=== PATIENT | male | born 1990 | race Caucasian/White ===

== ENCOUNTER 2018-10-05 19:43 | Emergency (ER) | payer SELFPAY ==
[2018-10-05 20:23] VITALS: BP 135/57
--- NOTE | 2018-10-05 20:41 | ED ---
Laceration/Wound HPI - HPI Summary HPI Summary: 28 yr old male using a utility knife on a paint can, cut through his jennifer and boxer short into his right anterior thigh. Injury occurred at noon today. He cleaned it with paper towel and water. He has encouraged to come have it looked at this evening by friends. Last tetanus shot was last year. - History of Current Complaint Stated Complaint: RIGHT THIGH LAC Time Seen by Provider: 10/05/18 20:25 Pain Intensity: 4 - Allergy/Home Medications Allergies/Adverse Reactions: Allergies Allergy/AdvReac Type Severity Reaction Status Date / Time amoxicillin Allergy Unknown Verified 10/05/18 20:16 Reaction Details Penicillins Allergy Unknown Verified 10/05/18 20:16 Reaction Details Home Medications: Home Medications Ibuprofen TAB* [Motrin TAB* 400 MG] 400 mg PO ONCE PRN 10/05/18 [History Confirmed 10/05/18] PMH/Surg Hx/FS Hx/Imm Hx Infectious Disease History: No Infectious Disease History: Denies: Traveled Outside the [place] in Last 30 Days - Family History Known Family History: Negative: Diabetes - Social History Alcohol Use: Occasionally Substance Use Type: Reports: None Smoking Status (MU): Light Every Day Tobacco Smoker Type: Cigarettes Amount Used/How Often: 6 cigarettes daily Review of Systems Constitutional: Negative Positive: Other - laceration to thigh All Other Systems Reviewed And Are Negative: Yes Physical Exam Triage Information Reviewed: Yes Vital Signs On Initial Exam: Initial Vitals Temp Pulse Resp BP Pulse Ox 98.7 F 95 20 135/57 99 10/05/18 20:17 10/05/18 20:17 10/05/18 20:17 10/05/18 20:17 10/05/18 20:17 Vital Signs Reviewed: Yes Appearance: Positive: Well-Appearing, No Pain Distress Skin: Positive: Other - 4 cm laceration right anterior thigh, clean and linear with no bleeding. It is about 6-7 mm deep. Head/Face: Positive: Normal Head/Face Inspection Eyes: Positive: EOMI ENT: Positive: Normal ENT inspection Respiratory/Lung Sounds: Positive: Clear to Auscultation, Breath Sounds Present Cardiovascular: Positive: RRR Abdomen Description: Negative: Distended Musculoskeletal: Positive: Strength/ROM Intact Neurological: Positive: Sensory/Motor Intact, Alert, Oriented to Person Place, Time, CN Intact II-III Psychiatric: Positive: Normal Procedures - Laceration/Wound Repair 1 Location: lower extremity - anterior right thigh. Description: Linear Anesthesia: Local - the patient declined local analgesia Length, Depth and Shape: 4 cm long, by 6 mm deep and linear. Betadine Prep?: Yes Irrigated w/ Saline (ccs): 400 Laceration/Wound Explored: clean, no foreign body removed Closure: [place] #__ - 3 Layer Closure?: No Sterile Dressing Applied?: Yes Diagnostics - Vital Signs Vital Signs Temp Pulse Resp BP Pulse Ox 10/05/18 20:17 98.7 F 95 20 135/57 99 - Laboratory Lab Statement: Any lab studies that have been ordered have been reviewed, and results considered in the medical decision making process. Laceration Repair Course/Dx - Course Course Of Treatment: 28 yr old with laceration right anterior thigh. Plan DC home WOund repaired by me. Catarina out in 10 days. - Clinical Impression Provider Diagnoses: Laceration of thigh, right Discharge - Sign-Out/Discharge Documenting (check all that apply): Patient Departure All imaging exams completed and their final reports reviewed: No Studies - Discharge Plan Condition: Good Disposition: HOME Patient Education Materials: Laceration (ED) Referrals: Sarai [facility]BLE [id number] [Primary Care Provider] - (In Ten days you need the catarina out. ) Additional Instructions: return to urgent care, or ER in ten days to have your catarina removed. - Billing Disposition and Condition Condition: GOOD Disposition: Home
== END 2018-10-05 21:02 | disposition home or self-care (01) ==
LOC: UCCORT 19:43
DX: S71.111A Laceration without foreign body, right thigh, initial encounter (principal); F17.210 Nicotine dependence, cigarettes, uncomplicated; Z88.0 Allergy status to penicillin; W26.0XXA Contact with knife, initial encounter; Y92.9 Unspecified place or not applicable
CPT/HCPCS: 12002; 99211; G0463

== ENCOUNTER 2019-02-26 19:42 | Emergency (ER) | payer SELFPAY ==
[2019-02-26 19:55] VITALS: BP 139/79
--- NOTE | 2019-02-26 20:11 | UC ---
General HPI - HPI Summary HPI Summary: Per tree trimmer: "SINCE MIDDAY YESTERDAY PT C/O NAUSEA AND VOMITTING. ALSO C/O INTERMITTENT "CHEST FEELS HEAVY" LAST FEW HOURS. DENIES FEVER/CHILLS. NAUSEOUS TODAY BUT NO VOMITTING. 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 he worked last week. heat index has been very high up to > 100. he was in the sun yesterday. started feeling "not right" w/ nausea, headache and fatigue yeterday. voimiting all last night, none today. no diarrhea. upper abd pain. chest pain started 2-3 hrs ago. dull over left and mid chest. no radiation. + diaphoresis. no FHx young sudden . no knwn CAD. -also has SOB. cant describe the abnormality w/ his breathing -chest pain improves with lying supine but worse with standing and sitting. lasts fom a few mins to 20 mins and can resolve but comes back. - History of Current Complaint Chief Complaint: UCGeneralIllness Stated Complaint: NAUSEA/PT STATE POSS HEAT EXHAUSTION Time Seen by Provider: 02/26/19 19:51 Pain Intensity: 3 - Allergy/Home Medications Allergies/Adverse Reactions: Allergies Allergy/AdvReac Type Severity Reaction Status Date / Time amoxicillin Allergy Unknown Verified 02/26/19 19:52 Reaction Details Penicillins Allergy Unknown Verified 02/26/19 19:52 Reaction Details Home Medications: Home Medications NK [No Home Medications Reported] 02/26/19 [History Confirmed 02/26/19] PMH/Surg Hx/FS Hx/Imm Hx Previously Healthy: Yes - Surgical History Surgical History: None - Family History Known Family History: Negative: Cardiac Disease, Diabetes - Social History Alcohol Use: Occasionally Substance Use Type: None Smoking Status (MU): Light Every Day Tobacco Smoker Type: Cigarettes Amount Used/How Often: 1 PPD Household Exposure Type: Cigarettes - Immunization History Most Recent Influenza Vaccination: 2016 Most Recent Tetanus Shot: unknown- at time of dena's 08/24/15 Review of Systems All Other Systems Reviewed And Are Negative: Yes Constitutional: Positive: Fatigue Skin: Negative: Rash Eyes: Positive: Negative ENT: Positive: Negative. Negative: Sore Throat Respiratory: Positive: Shortness Of Breath Cardiovascular: Positive: Chest Pain Gastrointestinal: Positive: Abdominal Pain, Vomiting, Nausea. Negative: Diarrhea Genitourinary: Positive: Negative Motor: Positive: Weakness Neurovascular: Positive: Negative Musculoskeletal: Positive: Negative Neurological: Positive: Headache, Weakness. Negative: Paresthesia, Numbness Psychological: Positive: Negative Is Patient Immunocompromised?: No Physical Exam Triage Information Reviewed: Yes Appearance: Ill-Appearing - mild, skin appears flushed. laying on exam table but sits up when I came in the room. Vital Signs: Initial Vital Signs Temp 99.2 F 02/26/19 19:52 Pulse 96 02/26/19 19:52 Resp 18 02/26/19 19:52 BP 139/79 02/26/19 19:52 Pulse Ox 100 02/26/19 19:52 Eye Exam: Normal Eyes: Positive: Conjunctiva Clear ENT Exam: Normal ENT: Positive: Pharynx normal, TMs normal, Uvula midline. Negative: Pharyngeal erythema, Nasal congestion, TM bulging, TM dull, TM red, Tonsillar swelling, Tonsillar exudate, Sinus tenderness Neck exam: Normal Neck: Positive: Supple, Nontender, No Lymphadenopathy Respiratory Exam: Normal Respiratory: Positive: Lungs clear, Normal breath sounds, No respiratory distress, No accessory muscle use. Negative: Crackles, Rhonchi, Stridor, Wheezing Cardiovascular Exam: Normal Cardiovascular: Positive: RRR, No Murmur, Other: - some mild reporduction f pain w/ palpation Abdomen Description: Positive: Soft, Other: - tender at mid epigatsrum. Negative: CVA Tenderness (R), CVA Tenderness (L), Distended, Guarding Bowel Sounds: Positive: Present Musculoskeletal Exam: Normal Neurological: Positive: Fatigued Psychological Exam: Normal Skin Exam: Normal Skin: Negative: Rashes Course/Dx - Course Course Of Treatment: Recommend further evaluation for heat exhaustion and work up for chest pain. recommend labs, fluids, zofran and work up. -EKG NSR, no acute changes. prominent S complex in V2, but no prev to compare. copy sent with pt to ER -declines ambulance understands risks. They are reliable and Jacquie reassures me that she will take jhim directly to ER - Differential Dx - Multi-Symptom Differential Diagnoses: Cardiac Ischemia, Metabolic Abnormality, Other - heat exhaustion - Diagnoses Provider Diagnosis: Chest pain Discharge - Sign-Out/Discharge Documenting (check all that apply): Patient Departure All imaging exams completed and their final reports reviewed: No Studies - Discharge Plan Condition: Fair Disposition: AGAINST MEDICAL ADVICE Referrals: No Primary Care Phys,NOPCP [Primary Care Provider] - Additional Instructions: Please go directly to the [place] emergency room for further evaluation of your chest pain. Do not stop anywhere else. - Billing Disposition and Condition Condition: FAIR Disposition: Against Medical Advice
== END 2019-02-26 20:19 | disposition left against medical advice (07) ==
LOC: UCCORT 19:42
DX: R07.9 Chest pain, unspecified (principal); F17.210 Nicotine dependence, cigarettes, uncomplicated
CPT/HCPCS: 93005; 99212; G0463

== ENCOUNTER 2019-03-24 18:02 | Emergency (ER) | payer SELFPAY ==
--- NOTE | 2019-03-24 18:26 | UC ---
Abdominal Pain Male HPI - HPI Summary HPI Summary: 28-year-old male who has had lower abdominal pain since Wednesday of this week. He 's had some intermittent nausea. 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 He states the abdominal pain shoots down into his groin. He is sexually active with one person in a monogamous relationship. He denies any penile discharge. He denies any urinary symptoms. - History of Current Complaint Chief Complaint: UCAbdominalPain Stated Complaint: LOWER ABDOMINAL PAIN Time Seen by Provider: 03/24/19 18:10 Hx Obtained From: Patient Onset/Duration: Gradual Onset Timing: Constant Severity Initially: Mild Severity Currently: Moderate Pain Intensity: 6 Location: Discrete At: RLQ, Discrete At: LLQ Radiates: Yes Radiates to: Inguinal Character: Aching, Sharp, Other - The pain that shoots down into the testicles he describes as a sharp pain. Aggravating Factor(s): Movement Alleviating Factor(s): Nothing Associated Signs And Symptoms: Positive: Decreased Appetite, Nausea - Risk Factors Testicular Torsion: Prior Torsion - Allergies/Home Medications Allergies/Adverse Reactions: Allergies Allergy/AdvReac Type Severity Reaction Status Date / Time amoxicillin Allergy Unknown Verified 03/24/19 18:17 Reaction Details Penicillins Allergy Unknown Verified 03/24/19 18:17 Reaction Details Home Medications: Home Medications Ibuprofen TAB* [Advil TAB*] 400 mg PO DAILY 03/24/19 [History Confirmed 03/24/19 ] PMH/Surg Hx/FS Hx/Imm Hx Previously Healthy: Yes - Surgical History Surgical History: None - Family History Known Family History: Negative: Cardiac Disease, Diabetes - Social History Alcohol Use: Occasionally Substance Use Type: None Smoking Status (MU): Heavy Every Day Tobacco Smoker Type: Cigarettes Amount Used/How Often: 1/2 ppd Household Exposure Type: Cigarettes - Immunization History Most Recent Influenza Vaccination: 2016 Most Recent Tetanus Shot: unknown- at time of daugher's 08/24/15 Review of Systems All Other Systems Reviewed And Are Negative: Yes Gastrointestinal: Positive: Abdominal Pain, Nausea Genitourinary: Positive: Other - Patient states the abdominal pain occasionally will shoot down into his groin.. Negative: Dysuria, Vaginal/Penile Burning, Vaginal/Penile Itching, Vaginal/Penile Discharge, Vaginal/Penile Pain, Vaginal/ Penile Tenderness Is Patient Immunocompromised?: No Physical Exam Triage Information Reviewed: Yes Appearance: Well-Appearing, No Pain Distress, Well-Nourished Vital Signs: Initial Vital Signs Temp 99.4 F 03/24/19 18:12 Pulse 107 03/24/19 18:12 Resp 16 03/24/19 18:12 BP 131/74 03/24/19 18:12 Pulse Ox 100 03/24/19 18:12 Vital Signs Reviewed: Yes Eyes: Positive: Conjunctiva Clear ENT: Positive: Hearing grossly normal, Pharynx normal, TMs normal, Uvula midline Neck: Positive: Supple, Nontender, No Lymphadenopathy Respiratory: Positive: Lungs clear, Normal breath sounds, No respiratory distress, No accessory muscle use Cardiovascular: Positive: No Murmur, Pulses Normal, Brisk Capillary Refill, Tachycardia Abdomen Description: Positive: No Organomegaly, Soft, CVA Tenderness (R), CVA Tenderness (L), Other: - Tender on palpation lower abdomen the right lower quadrant worse than the left lower quadrant. No rigidity, rebound or guarding.. Negative: Distended, Guarding, Hepatomegaly, Splenomegaly Bowel Sounds: Positive: Hypoactive Male Genital Exam: Positive: Normal Genitalia. Negative: Epididymal Tenderness , Erythema, Inguinal Tenderness, Scrotum Tenderness (R), Scrotum Tenderness (L) , Testicular Tenderness (R), Testicular Tenderness (L), Urethral Discharge Musculoskeletal: Positive: Strength Intact, ROM Intact Neurological: Positive: Alert, Muscle Tone Normal Psychological Exam: Normal Skin Exam: Normal Abd Pain Male Course/Dx - Course Course Of Treatment: The patient is being referred to [place] emergency room for evaluation of his lower abdominal pain. He was advised not to eat or drink anything between here and there. Last time he ate food was at 12 noon. He did have some water to drink about an hour ago. - Differential Dx/Clinical Impression Provider Diagnosis: Abdominal pain, RLQ (right lower quadrant), Abdominal pain, LLQ (left lower quadrant) Discharge - Sign-Out/Discharge Documenting (check all that apply): Patient Departure All imaging exams completed and their final reports reviewed: No Studies - Discharge Plan Condition: Fair Disposition: HOME Referrals: No Primary Care Phys,NOPCP [Primary Care Provider] - Additional Instructions: After the evaluation by the nurse practitioner, it is recommended that you go to the emergency room for further evaluation of the abdominal pain where you should receive additional testing that can be completed in the emergency department. It is recommended that you go directly to the emergency department. This evaluation may include blood work or imaging. This testing will be directed and decided by the provider that evaluates you within the emergency department. If pain becomes worse, you feel lightheaded or you develop uncontrolled vomiting, or have any other concerns while you are driving to the emergency room, please toe puller and call 911. - Billing Disposition and Condition Condition: FAIR Disposition: Home - Attestation Statements Provider Attestation: I was available for consult. This patient was seen by the [facility]. The patient was not presented to, seen by, or examined by me. -Bella
[2019-03-24 18:47] VITALS: BP 131/74
== END 2019-03-24 18:29 | disposition home or self-care (01) ==
LOC: UCCORT 18:02
DX: R10.31 Right lower quadrant pain (principal); R10.32 Left lower quadrant pain; R11.0 Nausea; Z88.0 Allergy status to penicillin; F17.210 Nicotine dependence, cigarettes, uncomplicated
CPT/HCPCS: 99212; G0463